=== PATIENT | male | born 1955 | race Caucasian/White ===

== ENCOUNTER → 2019-11-20 08:33 | Outpatient (BNVA) | payer BC, SELFPAY | PROVIDERS: Family Provider Nurse Practitioner Family; PCP Nurse Practitioner Family; Visit Provider Urology | DX: N40.1 Benign prostatic hyperplasia with lower urinary tract symptoms (principal); R33.9 Retention of urine, unspecified; E29.1 Testicular hypofunction | CPT/HCPCS: 81001 ==

== ENCOUNTER 2020-07-22 13:54 | Outpatient (CLI) | payer BC, SELFPAY ==
--- NOTE | 2020-07-22 14:04 | XRR_ITS ---
PROCEDURE INFORMATION: Exam: XR Right Shoulder Exam date and time: 07/22/2020 2:05 PM Age: 64 years old Clinical indication: Patient HX: Was lifting and sudden pain went through right shoulder; Additional info: Right shoulder pain TECHNIQUE: Imaging protocol: XR Right shoulder. Views: 2 or more views. COMPARISON: No relevant prior studies available. FINDINGS: Bones/joints: Mild right acromioclavicular arthropathy. Soft tissues: Normal. XR/XR shoulder RT min 2V* [id number] IMPRESSION: Mild right acromioclavicular arthropathy.
== END 2020-07-22 13:55 | disposition home or self-care (01) ==
LOC: RAD 14:00
PROVIDERS: PCP Nurse Practitioner Family; Visit Provider Nurse Practitioner Family
DX: M25.511 Pain in right shoulder (principal); M12.811 Other specific arthropathies, not elsewhere classified, right shoulder
CPT/HCPCS: 73030

== ENCOUNTER 2020-09-04 05:45 | Outpatient (CLI) | payer BC, SELFPAY ==
--- NOTE | 2020-09-04 07:27 | A.OFFVIS_ITS ---
Patient Information Referred by: [facility] Symptom onset date: 08/30/20 COVID 19 common symptoms: positive cough, dyspnea, fatigue and body aches Severity: mild and slowly worsening Treatment prior to arrival: none Other details: Patient is a 64-year-old male who tested positive for COVID on 09/02. Outside results were verified by myself as patient had a copy of these results with him. His vitals are stable/not requiring oxygen. Qualifies given his risk factors of severe obesity and HTN. Risks and benefits of using experimental monoclonal antibody infusion discussed and patient would like to proceed. [facility] COVID test results: No Data to Display outside results available, scanned (patient had copy of positive report (positive on 09/02)) Criteria/Plan Inclusion/Exclusion Criteria weight >/= 40kg, + direct test </= 10 days ago and symptom onset </= 10 days ago BMI >/= 35 and age >/= 55 and has hypertension not requiring hospitalization, not requiring oxygen (if not chronically on oxygen) and no increase oxygen requirement (if chronically on oxygen) Patient education patient/family/caregiver received/reviewed fact sheet, Emergency Use Authorization/unapproved drug status discussed with patient/family/caregiver, alternatives to this treatment discussed with patient/family/caregiver, risks and benefits of medication reviewed with patient/family/caregiver, patient/family/caregiver given opportunity for questions, which were answered and patient consents to receiving Monoclonal Antibody Treatment Plan for treatment Meets criteria for Monoclonal Antibody infusion Ordering Monoclonal Antibody infusion for today
[2020-09-04 07:54] VITALS: BP 147/77; PULSE 69; RESP 16; TEMP 36.6; O2SAT 95
[2020-09-04 08:59] VITALS: BP 144/79; PULSE 59; RESP 16; TEMP 36.5; O2SAT 96
[2020-09-04 10:07] VITALS: BP 161/90; PULSE 60; RESP 16; TEMP 36.3; O2SAT 96
--- NOTE | 2020-09-10 14:29 | DCPLANNER ---
control system manager had message that patient received the monoclonal antibody infusion. control system manager called patient to see how he was feeling after receiving the infusion. Patient stated that before the infusion, he had a severe headache, his eyes were red and running, he felt like he had no air, and he was running a fever. Patient stated that after the infusion that he is doing really good.
== END 2020-09-04 05:46 | disposition home or self-care (01) ==
LOC: ER 05:46
PROVIDERS: PCP Nurse Practitioner Family; Visit Provider Nurse Practitioner Family
DX: U07.1 COVID-19 (principal)

== ENCOUNTER → 2021-07-27 11:06 | Outpatient (BNVA) | payer BC, SELFPAY | PROVIDERS: PCP Nurse Practitioner Family; Visit Provider Registered Nurse Neonatal Intensive Care | DX: S49.92XA Unspecified injury of left shoulder and upper arm, initial encounter (principal); W28.XXXA Contact with powered lawn mower, initial encounter | CPT/HCPCS: 73030 ==

== ENCOUNTER → 2023-10-16 10:24 | Outpatient (BNVA) | payer OTHER, MEDICARE, SELFPAY | PROVIDERS: PCP Nurse Practitioner Family; Visit Provider Registered Nurse Neonatal Intensive Care | DX: R52 Pain, unspecified (principal) | CPT/HCPCS: 87426 ==

== ENCOUNTER 2024-05-04 14:18 | Outpatient (CLI) | payer OTHER, MEDICARE, SELFPAY ==
--- NOTE | 2024-05-04 14:35 | XR_ITS ---
WS: [id number] Chest 2 views, 05/04/2024 Clinical Data: COUGH Comparison: Two-view chest, 03/25/2017 Findings: No nodules, masses or effusions are seen. The heart is normal. The pulmonary vascularity is not increased. No pneumonia or pneumothorax is seen. XR/XR chest 2V* [id number] Impression: Negative chest.
== END 2024-05-04 14:19 | disposition home or self-care (01) ==
PROVIDERS: PCP Nurse Practitioner Family; Visit Provider Nurse Practitioner Family
DX: J40 Bronchitis, not specified as acute or chronic (principal)
CPT/HCPCS: 71046